=== PATIENT | female | born 1945 | race Caucasian/White ===

== ENCOUNTER 2017-12-04 19:10 | Emergency (ER) | payer OTHER ==
[~2017-12-04] VITALS: Ht 170.2 cm; Wt 67.1 kg
== END 2017-12-04 22:23 | disposition home or self-care (01) ==
LOC: ER 19:10
DX: S00.83XA Contusion of other part of head, initial encounter (principal); W18.39XA Other fall on same level, initial encounter; Y93.89 Activity, other specified; Y92.098 Other place in other non-institutional residence as the place of occurrence of the external cause; Y99.8 Other external cause status